=== PATIENT | female | born 1990 | race Two or more races ===

== ENCOUNTER 2018-01-12 18:00 | Inpatient (IN) | payer BC, OTHER ==
[~2018-01-12] VITALS: Ht 162.6 cm; Wt 73.2 kg
[2018-01-12 19:21] LABS: Basophils # (auto) 0 uL; Basophils % (auto) 0.3 % (0.0-2.0); Eosinophils # (auto) 0.1 uL; Eosinophils % (auto) 0.8 % (0.0-7.0); Hematocrit 31.2 % (36.0-46.0); Hemoglobin 10.6 g/dL (12.2-16.2); Lymphocytes # (auto) 2.9 uL; Lymphocytes % (auto) 32.4 % (10.0-50.0); Mean Corpuscular Hgb Conc. 34.1 g/dL (32.0-36.0); Mean Corpuscular Volume 93.9 fL (80.0-100.0); Monocytes # (auto) 0.8 uL; Monocytes % (auto) 9.2 % (0.0-12.0); Neutrophils # (auto) 5.1 uL; Neutrophils % (auto) 57.3 % (37.0-80.0); Nucleated Red Blood Cells % 0.2 %; Platelet Count (auto) 205 10^3/uL (140-450); Red Blood Cells 3.32 10^6/uL (4.0-5.20); Red Cell Distribution Width 13.3 % (11.8-14.3); White Blood Cell 8.9 10^3/uL (4.4-10.8)
[2018-01-12 19:46] LABS: Albumin 3.6 g/dL (3.4-5.0); BUN/Creatinine Ratio 19.2; Bilirubin, Total 0.2 mg/dL (0.2-1.0); Calcium 8.3 mg/dL (8.5-10.1); Potassium 3.3 mmol/L (3.5-5.1); Total Protein 7.2 g/dL (6.4-8.2)
[2018-01-12 20:25] LABS: INR 0.94 (0.9-1.15); Partial Thromboplastin Time 23.5 sec (23.78-33.04); Prothrombin Time 10.1 sec (9.27-12.13)
[2018-01-12] MEDS ORDERED: LACT. RINGERS/OXYTOCIN 20UNITS 1,000 ML IV ONE (21:45)
[2018-01-12] MEDS ORDERED: METHYLERGONOVINE MALEATE 0.2 MG/ML AMP IM ONE (21:45)
[2018-01-12] MEDS ORDERED: cefTRIAXone 1GM/10ml IVPUSH 10 ML IV ONE ×2 (22:30)
[2018-01-12] MEDS ORDERED: ONDANSETRON HCL 4 MG/2 ML VIAL IV ONE (23:45)
[2018-01-12] MEDS ORDERED: ONDANSETRON HCL 4 MG/2 ML VIAL ONE (23:48)
[2018-01-13] VITALS (11 sets, daily range): BP systolic 70–96; BP diastolic 32–63
[2018-01-13 03:48] LABS: Hemoglobin 7.6 g/dL (12.2-16.2)
[2018-01-13 03:49] LABS: Hematocrit 22.7 % (36.0-46.0)
[2018-01-13] MEDS ORDERED: SUCCINYLCHOLINE CHLORIDE 20 MG/ML 10ML VIAL IV ONE (04:06)
[2018-01-13] MEDS ORDERED: fentaNYL CITRATE 100 MCG/2 ML VL ONE ×2 (04:12→09:33)
[2018-01-13] MEDS ORDERED: MIDAZOLAM HCL 1MG/1ML-2 ML VIAL ONE ×2 (04:13→09:33)
[2018-01-13] MEDS ORDERED: ONDANSETRON HCL 4 MG/2 ML VIAL ONE ×2 (04:13→10:18)
[2018-01-13] MEDS ORDERED: LIDOCAINE HCL 2% TOP JELLY 5ML TOP ONE ×3 (04:13→10:00)
[2018-01-13] MEDS ORDERED: PROPOFOL 10 MG/ML 20 ML IV ONE (04:13)
[2018-01-13] MEDS ORDERED: CETI1TAB36 PO (07:36)
[2018-01-13] MEDS ORDERED: CALC600T10 OR (07:36)
[2018-01-13] MEDS ORDERED: BIOT5TAB3 PO (07:36)
[2018-01-13] MEDS ORDERED: OMEG100062 PO (07:36)
[2018-01-13] MEDS ORDERED: LORA-622 PO (07:36)
[2018-01-13] MEDS ORDERED: SACC1CAP3 PO (07:36)
[2018-01-13] MEDS ORDERED: NORETAB32 PO (07:36)
[2018-01-13] MEDS ORDERED: MULT-228 PO (07:36)
[2018-01-13 08:14] LABS: Hematocrit 27.4 % (36.0-46.0); Hemoglobin 9.3 g/dL (12.2-16.2)
[2018-01-13] MEDS ORDERED: NOREPINEPHRINE 8 MG/250ML KIT 250 ML IV SCH (08:30)
[2018-01-13] MEDS ORDERED: ETOMIDATE (2MG/ML) 20ML VIAL IV ONE (09:30)
[2018-01-13] MEDS ORDERED: HYDROCORTISONE SOD SUCC 100 MG/2ML INJ VIAL ONE (09:32)
[2018-01-13] MEDS ORDERED: LEVOFLOXACIN 500MG 100 ML IV ONE (09:35)
[2018-01-13] MEDS ORDERED: METOCLOPRAMIDE HCL 5MG/ml INJ 2ml VIAL ONE (10:18)
[2018-01-13] MEDS ORDERED: ONDANSETRON HCL 4 MG/2 ML VIAL IV PRN (10:30)
[2018-01-13] MEDS ORDERED: ONDANSETRON HCL 4 MG/2 ML VIAL IV ONE (10:45)
[2018-01-13] MEDS ORDERED: fentaNYL CITRATE 100 MCG/2 ML VL IV ONE (11:00)
[2018-01-13 11:02] LABS: Hematocrit 29.6 % (36.0-46.0); Hemoglobin 9.9 g/dL (12.2-16.2); Mean Corpuscular Hemoglobin 31.7 pg (28.0-32.0); Mean Corpuscular Hgb Conc. 33.4 g/dL (32.0-36.0); Mean Corpuscular Volume 94.9 fL (80.0-100.0); Platelet Count (auto) 133 10^3/uL (140-450); Red Blood Cells 3.12 10^6/uL (4.0-5.20); Red Cell Distribution Width 14.1 % (11.8-14.3); White Blood Cell 7.8 10^3/uL (4.4-10.8)
[2018-01-13 11:20] LABS: Basophils % (manual) 0 (0.0-2.0); Blast Cells 0; Metamyelocytes % 0; Promyelocytes % 0
[2018-01-13 13:12] LABS: Urine Bacteria NONE SEEN /hpf (None Seen); Urine Blood 2+ /uL (Negative); Urine Specific Gravity 1.006 (1.001-1.035); Urine WBC 4 /hpf (0 - 5)
[2018-01-13 14:39] LABS: Band Neutrophils % (manual) 6; Eosinophils % (manual) 1 (0-7); Lymphocytes % (manual) 51 (10.0-50.0); Monocytes % (manual) 8 (0-12); Myelocytes % 1; Reactive Lymphocytes 4
[2018-01-13] MEDS ORDERED: SODIUM CHLORIDE 0.9% 1,000 ML IV SCH (16:00)
[2018-01-13] MEDS ORDERED: MULTIPLE VITAMINS W/ MINERALS TAB PO ONE (17:30)
[2018-01-13] MEDS ORDERED: KETOROLAC TROMETH 30 MG/ML 1ML VIAL IV PRN (17:30)
[2018-01-13] MEDS ORDERED: ACETAMINOPHEN 325 MG TAB PO PRN (17:30)
[2018-01-13] MEDS ORDERED: SODIUM CHLORIDE 0.9% 1,000 ML IV ONE (18:00)
[2018-01-13 18:08] LABS: Hematocrit 34.9 % (36.0-46.0)
[2018-01-13] MEDS: SODIUM CHLORIDE 0.9% 1,000 ML IV SCH (18:46)
[2018-01-14] MEDS ORDERED: SODIUM CHLORIDE 0.9% 1,000 ML IV ONE (00:45)
[2018-01-14 01:01] LABS: Hematocrit 30.4 % (36.0-46.0); Hemoglobin 10.4 g/dL (12.2-16.2)
[2018-01-14] MEDS: SODIUM CHLORIDE 0.9% 1,000 ML IV SCH ×3 (02:20→15:00)
[2018-01-14] MEDS ORDERED: ALBUMIN 5% 250 ML IV ONE (03:00)
[2018-01-14 05:00] VITALS: BP 93/65
[2018-01-14 05:32] LABS: Basophils # (auto) 0 uL; Basophils % (auto) 0.4 % (0.0-2.0); Eosinophils # (auto) 0 uL; Eosinophils % (auto) 0.5 % (0.0-7.0); Hematocrit 30.3 % (36.0-46.0); Hemoglobin 10.7 g/dL (12.2-16.2); Lymphocytes % (auto) 54.1 % (10.0-50.0); Mean Corpuscular Hemoglobin 33.3 pg (28.0-32.0); Mean Corpuscular Hgb Conc. 35.5 g/dL (32.0-36.0); Mean Corpuscular Volume 93.8 fL (80.0-100.0); Monocytes # (auto) 0.8 uL; Neutrophils # (auto) 3.3 uL; Nucleated Red Blood Cells % 0.2 %; Platelet Count (auto) 130 10^3/uL (140-450); Red Blood Cells 3.23 10^6/uL (4.0-5.20); Red Cell Distribution Width 13.8 % (11.8-14.3); White Blood Cell 9.2 10^3/uL (4.4-10.8)
[2018-01-14 06:39] LABS: Calcium 7.3 mg/dL (8.5-10.1); Potassium 3.3 mmol/L (3.5-5.1)
[2018-01-14 08:10] VITALS: BP 94/60
[2018-01-14] MEDS ORDERED: POTASSIUM CHL 20 Meq TABLET PO ONE (09:30)
[2018-01-14] MEDS ORDERED: MULTIPLE VITAMINS W/ MINERALS TAB PO SCH (10:00)
[2018-01-14] MEDS ORDERED: PANTOPRAZOLE 40 MG TAB PO SCH (10:00)
[2018-01-14] MEDS ORDERED: FER325T PO (10:04)
[2018-01-14 10:35] VITALS: BP 94/60
[2018-01-14] MEDS: FERROUS SULFATE 325 MG TAB PO SCH ×2 (10:45→18:00)
[2018-01-14 12:28] VITALS: BP 99/62
[2018-01-14 17:14] VITALS: BP 105/60
== END 2018-01-14 18:54 | disposition home or self-care (01) | DRG 770 ==
LOC: ER 18:08 → OVERFLOW 18:09 → EAST 01-13 12:23 → TELE-EAST 01-13 18:05
PROVIDERS: ADMIT Nurse Practitioner Family; ATTEND Nurse Practitioner Family
PROC: 10D17ZZ Extraction of Products of Conception, Retained, Via Natural or Artificial Opening (ICD-10-PCS; principal; 2018-01-12)
PROC: 30233N1 Transfusion of Nonautologous Red Blood Cells into Peripheral Vein, Percutaneous Approach (ICD-10-PCS; 2018-01-13)
DX: O03.1 Delayed or excessive hemorrhage following incomplete spontaneous abortion (principal); D62 Acute posthemorrhagic anemia; B85.0 Pediculosis due to Pediculus humanus capitis; E87.6 Hypokalemia; I95.9 Hypotension, unspecified; Z88.0 Allergy status to penicillin
CPT/HCPCS: 36415; 76830; 76856; 80048; 80053; 81001; 84702; 85007; 85014; 85018; 85025; 85027; 85610; 85730; 86850; 86900; 86901; 86920; J0330; J0696; J1956; J2250; J2405; J2590; J2704